=== PATIENT | male | born 1955 | race African-American/Black ===

== ENCOUNTER 2023-10-18 00:34 | Day surgery (SDC) | payer OTHER, SELFPAY ==
--- NOTE | 2023-10-14 09:22 | SUR.PREOP ---
Patient called regarding upcoming procedure. Unable to leave message.
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
[2023-10-18 13:30] VITALS: BP 149/91; PULSE 78; RESP 18; TEMP 36.3; O2SAT 100
[2023-10-18] MEDS: LACTATED RINGERS 1,000 ML 150 ML IV CONT (13:40)
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
[2023-10-18 13:58] VITALS: BP 102/67; PULSE 87; RESP 16; O2SAT 95
[2023-10-18 14:08] VITALS: BP 115/74; PULSE 82; RESP 17; O2SAT 100
[2023-10-18 14:18] VITALS: BP 130/84; PULSE 75; RESP 15; O2SAT 100
== END 2023-10-18 14:30 | disposition home or self-care (01) ==
PROVIDERS: PCP Family Medicine; Visit Provider Internal Medicine Gastroenterology
PROC: 0DJD8ZZ Inspection of Lower Intestinal Tract, Via Natural or Artificial Opening Endoscopic (ICD-10-PCS; CPT 45378; principal; 2023-10-18 14:00)
DX: R19.5 Other fecal abnormalities (principal); K64.8 Other hemorrhoids; E66.9 Obesity, unspecified; Z68.28 Body mass index [BMI] 28.0-28.9, adult; Z98.890 Other specified postprocedural states; Z87.891 Personal history of nicotine dependence
CPT/HCPCS: 45378; J2704; J7120